=== PATIENT | male | born 1950 ===

== ENCOUNTER 2022-08-05 17:59 | Observation (INO) | payer MEDICARE ==
[~2022-08-05] VITALS: Ht 157.5 cm; Wt 63.1 kg
[~2022-08-05 17:59] MED LIST: HYDACE5 PO
[2022-08-05 19:51] LABS: BASOPHILS ABSOLUTE AUTO 0.02 K/mm3 (0.00-0.23); BASOPHILS PERCENT AUTO 1 % (0-2); EOSINOPHILS ABSOLUTE AUTO 0.16 K/mm3 (0.00-0.68); EOSINOPHILS PERCENT AUTO 4 % (0-6); Hematocrit 40.8 % (37.0-53.0); Hemoglobin 14.2 g/dL (13.5-17.5); IMMATURE GRAN PERCENT AUTO 0 % (0-1); LYMPHOCYTES ABSOLUTE AUTO 1.39 K/mm3 (0.84-5.20); LYMPHOCYTES PERCENT AUTO 36 % (21-46); MONOCYTES ABSOLUTE AUTO 0.24 K/mm3 (0.16-1.47); MONOCYTES PERCENT AUTO 6 % (4-13); Mean Corpuscular HGB 30.1 pg (26.0-34.0); Mean Corpuscular HGB Conc 34.8 g/dL (31.5-36.5); Mean Corpuscular Volume 86 fL (80-100); NEUTROPHILS ABSOLUTE AUTO 2.08 K/mm3 (1.96-9.15); NEUTROPHILS PERCENT AUTO 54 % (41-73); Platelet Count 200 K/mm3 (150-400); RDW Coefficient Variation 13.2 % (11.7-14.2); RDW Standard Deviation 41.8 fL (35.1-46.3); Red Blood Cell Count 4.72 M/mm3 (4.30-5.90); White Blood Cell Count 3.89 K/mm3 (4.00-11.30)
[2022-08-05 20:12] LABS: Albumin, Blood 3.6 g/dL (3.4-5.0); Bilirubin, Total 0.5 mg/dL (0.1-1.0); Bun/Creatinine Ratio 18.8 (12.0-20.0); Creatinine, Blood 0.64 mg/dL (0.60-1.20); Globulin, Blood 3.6 g/dL (2.2-4.0); Total Protein, Blood 7.2 g/dL (6.4-8.2)
--- NOTE | 2022-08-06 05:55 | NUR ---
SHIFT SUMMARY PT ALERT AND ORIENTED. PT IS ONLY IVORIAN SPEAKING, FAMILY AT BEDSIDE HAS TRANSLATED BETWEEN PT AND STAFF. PT HAS HAD SOME CLEARS SINCE ARRIVING TO FLOOR, AND KNOWS HE'S NPO AFTER 0600. INDEPENDENT IN ROOM/BATHROOM. NO PAIN COVERAGE WAS NEEDED AFTER ARRIVING TO FLOOR. PT RESTED MAJORITY OF SHIFT. CALLS APPROPRIATELY, CALL LIGHT WITHIN REACH.
--- NOTE | 2022-08-06 12:28 | NUR ---
PT ARRIVED TO THE UNIT VIA GURN. VSS. PT REPOTING PAIN OF 2/10 IN HIS ABD, NO NAUSEA REPORTED. PT HAS LINEN GRADER IN THE ROOM WITH HIM. Ambulatory in Day Surgery. Surgical site prepped with 2% Chlorhexidine cloth wipe. Patient confirms NPO status and agrees with scheduled surgery.
--- NOTE | 2022-08-06 14:48 | NUR ---
PATIENT CAME BACK FROM OR TODAY AT 1430. POD 0 LAP APPY PATIENT IS A&OX4. VS ARE WNL AND IS ON RA. PATIENT REPORTS DISCOMFORT BUT REFUSES PAIN MEDICATIONS AT THIS TIME. HE HAS 3 LAP SITES WITH STERI STRIPS THAT ARE C/D/I. DENIES NAUSEA OR VOMITING. HE IS TOLERATING SMALL AMOUNTS OF PO INTAKE. FAMILY IS AT BEDSIDE. CALL LIGHT WITHIN REACH.
--- NOTE | 2022-08-06 15:21 | NUR ---
SHIFT SUMMARY: POD 0 LAP APPY NO SIGNIFICANT CHANGES. PATIENT IS A SBA TO THE BATHROOM. HE IS A&OX4. VS ARE WNL. PAIN IS UNCOMFORTABLE BUT REFUSES PAIN MEDICATIONS AT THIS TIME. HE HAS 3 LAP SITES WITH STERI STRIPS THAT ARE C/D/I. HE IS TOLERATING SMALL AMOUNTS OF PO INTAKE AND IS VOIDING. CALLS APPROPRIATELY. CALL LIGHT WITHIN REACH. THE PLAN IS TO DO IV ABX OVER NIGHT AND TO HAVE PAIN MANAGED WELL TOLERATING HIS REGULAR DIET THEN HE WILL DISCHARGE HOME IF APPROPRIATE.
--- NOTE | 2022-08-07 04:14 | NUR ---
SHIFT SUMMARY PT POD 0 LAP APPY, HE HAS DONE WELL OVERNIGHT. HE HAS HAD SOME PAIN THAT HAS BEEN WELL MANANGED PER EMAR. PT HAS BEEN UP AND VOIDING, TOLERATING PO INTAKE. IV ANTIBIOTICS PER ORDERS. LAP SITES, WNL. PT A/OX4, INDEPENDENT IN THE ROOM, POST OP VITALS STABLE, PLAN IS FOR DISCHARGE TODAY. BED IN LOWEST POSITION, CALL LIGHT WITHIN REACH.
[2022-08-07] MEDS ORDERED: AMOCLA875 PO (09:53)
[2022-08-07] MEDS ORDERED: HYDR1TAB94 PO (09:53)
--- NOTE | 2022-08-07 10:12 | NUR ---
DISCHARGE NOTE: PATIENT IS EQUATORIAL GUINEAN SPEAKING ONLY SO FAMILY TRANSLATED DISCHARGE INSTRUCTIONS. FAMILY AND PATIENT HAD NO FURTHER QUESTIONS AT THIS TIME. IV WAS TAKEN OUT AND WNL. PAIN IS MANAGED WITH ORAL PAIN MEDICATIONS. HIS ABD HAS X3 STERI STRIPS THAT ARE C/D/I. DENIES NAUSEA OR VOMITING. HE IS TOLERATING PO INTAKE AND IS VOIDING. HARD PERSCRIPTIONS WERE GIVEN TO THE FAMILY. HE IS GETTING DRESSED AND HAS ITEMS IN THE ROOM GATHERED. PATIENT REFUSED THE WHEELCHAIR AND WILL BE WALKING OUT WITH FAMILY ONCE THE FAMILY COMES BACK WITH THE CAR.
--- NOTE | 2022-08-07 10:24 | NUR ---
PATIENT NOW REQUESTS TO BE WHEELCHAIRED OUT TO THE FAMILY CAR. HE IS BEING WHEELCHAIRED OUT TO THE FAMILY CAR TO BE TAKEN HOME.
== END 2022-08-07 10:26 | disposition home or self-care (01) ==
LOC: ER 17:59 → SURS 18:00
PROVIDERS: Student in an Organized Health Care Education/Training Program; ADMIT Surgery
PROC: 0DBH4ZZ Excision of Cecum, Percutaneous Endoscopic Approach (ICD-10-PCS; principal; 2022-08-06 12:00)
PROC: 0DTJ4ZZ Resection of Appendix, Percutaneous Endoscopic Approach (ICD-10-PCS; principal; 2022-08-06 12:00)
DX: K35.80 Unspecified acute appendicitis (principal); R10.31 Right lower quadrant pain; K63.89 Other specified diseases of intestine; N32.89 Other specified disorders of bladder; N43.3 Hydrocele, unspecified; K44.9 Diaphragmatic hernia without obstruction or gangrene
CPT/HCPCS: 74177; 80053; 85025; 88304; 93005; 93010; 96361; 96365; 96366; 96375; 96376; 99284-25; A9270; G0378; J0295; J1100; J1170; J1885; J2250; J2405; J2704; J2710; J2795; J3010; J7030; J7120; Q9967

== ENCOUNTER → 2023-04-11 | Outpatient (CLI) | payer MEDICARE ==
[~2023-04-11] MED LIST changes: +AMOCLA875 PO; +HYDR1TAB94 PO
[2023-04-11 19:26] LABS: BASOPHILS ABSOLUTE AUTO 0.01 K/mm3 (0.00-0.23); BASOPHILS PERCENT AUTO 0 % (0-2); EOSINOPHILS PERCENT AUTO 2 % (0-6); Hematocrit 37.3 % (37.0-53.0); Hemoglobin 12.8 g/dL (13.5-17.5); IMMATURE GRAN ABSOLUTE AUTO 0.01 K/mm3 (0.00-0.10); IMMATURE GRAN PERCENT AUTO 0 % (0-1); LYMPHOCYTES ABSOLUTE AUTO 1.13 K/mm3 (0.84-5.20); LYMPHOCYTES PERCENT AUTO 21 % (21-46); MONOCYTES ABSOLUTE AUTO 0.38 K/mm3 (0.16-1.47); MONOCYTES PERCENT AUTO 7 % (4-13); Mean Corpuscular HGB 29.8 pg (26.0-34.0); Mean Corpuscular HGB Conc 34.3 g/dL (31.5-36.5); Mean Corpuscular Volume 87 fL (80-100); Mean Platelet Volume 11.2 fL (9.1-12.4); NEUTROPHILS ABSOLUTE AUTO 3.79 K/mm3 (1.96-9.15); NEUTROPHILS PERCENT AUTO 70 % (41-73); Platelet Count 239 K/mm3 (150-400); RDW Coefficient Variation 13.2 % (11.7-14.2); RDW Standard Deviation 41.5 fL (35.1-46.3); Red Blood Cell Count 4.29 M/mm3 (4.30-5.90); White Blood Cell Count 5.42 K/mm3 (4.00-11.30)
[2023-04-11 19:40] LABS: Magnesium, Blood 2.3 mg/dL (1.6-2.4)
[2023-04-11 19:43] LABS: Albumin, Blood 3.3 g/dL (3.4-5.0); Albumin/Globulin Ratio 0.8 (0.8-1.8); Bilirubin, Total 0.4 mg/dL (0.1-1.0); Bun/Creatinine Ratio 22.4 (12.0-20.0); Calcium, Blood 8.8 mg/dL (8.5-10.1); Creatinine, Blood 0.62 mg/dL (0.60-1.20); Globulin, Blood 3.9 g/dL (2.2-4.0); Potassium, Blood 4.2 mmol/L (3.5-5.5); Thyroid Stimulating Hormone 1.27 uIU/mL (0.360-4.800); Total Protein, Blood 7.2 g/dL (6.4-8.2)
[2023-04-13 10:44] LABS: CHOL/HDL RATIO 4.5; Cholesterol 136 mg/dL (50-200); HDL Cholesterol 30 mg/dL (>39); LDL/HDL RATIO 2.4; Low Density Lipoprotein Chol 71 mg/dL (0-110); Triglycerides 175 mg/dL (30-160); Very Low Density Lipoprot Chol 35 mg/dL (6-32)
== END ==
LOC: LAB 16:29 → LAB SHORT 16:29
PROVIDERS: Nurse Practitioner Family
DX: U07.1 COVID-19 (principal); R06.02 Shortness of breath; R25.2 Cramp and spasm; E78.5 Hyperlipidemia, unspecified
CPT/HCPCS: 80053; 80061; 83735; 84443; 85025